=== PATIENT | female | born 1995 | race Caucasian/White ===

== ENCOUNTER 2023-07-26 16:51 | Emergency (ER) | payer OTHER ==
[~2023-07-26] VITALS: Ht 162.6 cm; Wt 66.0 kg
[~2023-07-26 16:51] MED LIST: AMOXICILLIN250 M1 PO; AMOXICILLIN500 MG PO; DELSYM30 MG/5 ML OR; FLINTSTONES GUMMIES PO; MIRCETTE28 DAY PO; MUCINEX600 MG OR
[2023-07-26 18:33] VITALS: BP 106/67
[2023-07-26 18:35] LABS: BASO% 0.3 % (0-3); EOS% 2.5 % (0-8); HEMATOCRIT 36.7 % (37.0-47.0); HEMOGLOBIN 12.3 g/dl (12.0-16.0); LYMPH% 35.1 % (15-41); MEAN CELL VOLUME 85.3 fL CALC (80.0-100.0); MEAN CORPUSCULAR HGB 28.6 pG CALC (26.0-32.0); MEAN CORPUSCULAR HGB CONC 33.5 g/dL CAL (32.0-36.0); MONO% 5.1 % (2-13); NEUT# 3.45 thou/uL (2.00-7.15); RED BLOOD COUNT 4.3 mill/uL (4.20-5.60); RED CELL DISTRI WIDTH 12.3 % (11.5-15.5)
[2023-07-26 18:37] LABS: URINE BILIRUBIN - DIPSTICK Negative (NEGATIVE); URINE BLOOD DIPSTICK Small (NEGATIVE); URINE GLUCOSE - DIPSTICK Negative (NEGATIVE); URINE KETONE 40 mg/dL (NEGATIVE); URINE LEUK ESTERASE Negative (NEGATIVE); URINE NITRITE - DIPSTICK Negative (Negative); URINE PH 6.5 (4.5-8.0); URINE PROTEIN - DIPSTICK Negative (NEG-TRACE); URINE UROBILINOGEN - DIPSTICK 0.2 E.U./dL (0.2)
[2023-07-26 18:39] LABS: URINE COLOR Yellow
[2023-07-26 18:45] VITALS: BP 108/67
[2023-07-26 18:50] LABS: URINE SQUAMOUS EPITHELIAL CELL FEW EPI/hpf (0-FEW); URINE WBC 0-2 WBC/hpf (0-5)
[2023-07-26 19:01] VITALS: BP 127/86
[2023-07-26 19:15] VITALS: BP 122/76
[2023-07-26 19:16] LABS: ALBUMIN 4.9 g/dL (3.2-5.0); ALKALINE PHOSPHATASE 68 u/l (38-126); ANION GAP 13 (6-22 (CALC)); BILIRUBIN, TOTAL 0.8 mg/dL (0.02-1.3); BUN 12 mg/dL (7-17); BUN/CREATININE RATIO 18 (12-20 (CALC)); CARBON DIOXIDE 24 mmol/l (22-30); CHLORIDE 107 mmol/l (95-108); CREATININE 0.7 mg/dL (0.5-1.0); GFR FOR AFR.AMER. > 60 ML/MIN (>=60 (CALC)); GFR OTHER RACES > 60 ML/MIN (>=60 (CALC)); LIPASE 69 u/l (23-300); SGOT/AST 23 u/l (14-36); SODIUM 140 mmol/l (137-146); TOTAL PROTEIN 8.5 g/dL (6.3-8.2)
[2023-07-26 20:09] VITALS: BP 107/71
[2023-07-26 20:14] VITALS: BP 107/71
== END 2023-07-26 20:18 | disposition home or self-care (01) | DRG 392 ==
LOC: ED 16:51
PROVIDERS: Family Medicine
DX: R10.32 Left lower quadrant pain (principal); Z90.710 Acquired absence of both cervix and uterus; Z90.79 Acquired absence of other genital organ(s)